=== PATIENT | male | born 2000 | race Caucasian/White ===

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

== ENCOUNTER 2019-09-03 17:31 | Emergency (ER) | payer OTHER ==
[~2019-09-03] VITALS: Ht 185.4 cm; Wt 133.8 kg
[~2019-09-03 17:31] MED LIST: ACET-141 PO; D-ME118S24 PO; PENI500T PO
[2019-09-03 18:39] VITALS: BP 167/97; PULSE 92; RESP 20; Ht 185.4 cm; Wt 133.8 kg
== END 2019-09-03 19:39 | disposition home or self-care (01) ==
LOC: E/R 17:31
DX: J02.9 Acute pharyngitis, unspecified (principal)
CPT/HCPCS: 99283